=== PATIENT | female | born 1950 | race Caucasian/White ===

== ENCOUNTER 2018-02-21 08:47 | Inpatient (IN) | payer MEDICARE, OTHER ==
[~2018-02-21] VITALS: Ht 172.7 cm; Wt 109.4 kg
--- NOTE | ~2018-02-21 | S ---
[address] [address] SURGICAL PATH RPT PROCEDURE Name: VEE DIAZ Room: [address]#: [id number] Admission: 02/21/18 Date of : 54 Discharge: 02/22/18 Report #: [id number] Path Case #: [id number] PATHOLOGY REPORT DRAFT COLLECTION DATE: 02/22/2018 RECEIVED DATE: 02/22/2018 SPECIMEN(S) RECEIVED: Wanda biopsy
[2018-02-21 08:49] VITALS: BP 146/86
[2018-02-21] MEDS ORDERED: COZAAR 50 MG TA50 M2 PO ×2 (08:56→08:57)
[2018-02-21] MEDS ORDERED: SYNTHROID50 MCG PO (08:57)
[2018-02-21] MEDS ORDERED: TRAZODONE 150150 M1 PO ×2 (08:57→08:58)
[2018-02-21] MEDS ORDERED: OMEPRAZOLE40 MG PO (08:58)
[2018-02-21] MEDS ORDERED: XANAX 0.25 MG0.25 MG PO (08:58)
[2018-02-21] MEDS ORDERED: RANITIDINE HCL300 MG PO (08:58)
[2018-02-21 09:28] LABS: ABSOLUTE BASOPHILS 0.1 thou/uL (0.0-0.2); ABSOLUTE EOSINOPHILS 0.2 thou/uL (0.0-0.7); ABSOLUTE LYMPHOCYTES 1.7 thou/uL (0.8-5.3); ABSOLUTE MONOCYTES 0.4 thou/uL (0.0-1.2); ABSOLUTE NEUTROPHILS 3.7 thou/uL (1.6-8.1); BASOPHILS 0.9 %; EOSINOPHILS 2.6 %; HEMATOCRIT 39.8 % (37.0-47.0); HEMOGLOBIN 13.7 gm/dL (12.0-15.0); LYMPHOCYTES 28.1 %; MCH 29.1 pg (26.0-34.0); MCHC 34.4 g/dL (28.0-37.0); MCV 84.6 fL (80.0-100.0); MONOCYTES 7.4 %; MPV 8.7 fl. (7.2-11.1); NUCLEATED RBCS 0 /100WBC; PLATELET COUNT* 235 thou/uL (150-400); RBC 4.71 mil/uL (4.20-5.00); RDW-CV 14.3 % (10.5-14.5); WBC 6.1 thou/uL (4.0-11.0)
[2018-02-21 09:35] LABS: ANION GAP 8 mmol/L (7-16); BUN 21 mg/dL (7-18); CALCIUM 8.8 mg/dL (8.5-10.1); CHLORIDE 105 mmol/L (98-107); CO2 26 mmol/L (21-32); CREATININE 1.1 mg/dL (0.6-1.3); GLUCOSE 126 mg/dL (70-99); SODIUM 139 mmol/L (136-145)
[2018-02-21 09:49] LABS: ALBUMIN 3.4 g/dL (3.4-5.0); ALKALINE PHOSPHATASE 78 U/L (46-116); LIPASE 123 U/L (73-393); MAGNESIUM 1.8 mg/dL (1.8-2.4); SGOT 18 U/L (15-37); SGPT 28 U/L (30-65); TOTAL BILIRUBIN 0.3 mg/dL (<0.1-1.0); TOTAL PROTEIN 6.4 g/dL (6.4-8.2); TROPONIN-I LEVEL <0.06 ng/mL (<0.06)
[2018-02-21 11:10] VITALS: BP 108/68
[2018-02-21 11:20] VITALS: BP 110/70
[2018-02-21 16:13] VITALS: BP 103/66
--- NOTE | 2018-02-21 17:24 | 2DMMODE ---
[place] [address] 2 D/M-MODE ECHOCARDIOGRAM Name: VEE DIAZ Room: [address] IN [facility]#: [id number] Admission: 02/21/18 Attend Phys: Sebastian Dowd Discharge: Date of : 54 Date of Service: 02/21/18 1724 Report #: [id number] THIS REPORT FOR: //name// APPROVED REPORT Study performed: 02/21/2018 14:46:15 EXAM: Comprehensive 2D, Doppler, and color-flow Echocardiogram Patient Location: In-Patient Room #: 229 Status: routine BSA: 2.21 HR: 66 bpm BP: 110/70 mmHg Rhythm: NSR Other Information Study Quality: Good Indications Chest Pain 2D Dimensions LVEF(%): 70.26 (>50%) IVSd: 10.25 (7-11mm) LVOT Diam: 20.04 (18-24mm) LVDd: 45.31 mm PWd: 8.33 (7-11mm) Ascending Ao: 33.41 (22-36mm) LVDs: 27.37 (25-40mm) Aortic Root: 33.99 mm Centeno's LVEF: 70.26 % Volumes Left Atrial Volume (Systole) LA ESV Index: 16.10 mL/m2 Aortic Valve AoV Peak Arsh.: 1.20 m/s AO Peak Gr.: 5.80 mmHg LVOT Max P.61 mmHg AO Mean Gr.: 3.23 mmHg LVOT Mean P.83 mmHg LVOT Max V: 1.07 m/s AO V2 VTI: 25.18 cm LVOT Mean V: 0.60 m/s LETI (VTI): 2.66 cm2 LVOT V1 VTI: 21.26 cm Mitral Valve E/A Ratio: 1.01 [place] [address] 2 D/M-MODE ECHOCARDIOGRAM Name: VEE DIAZ Room: [address] IN .R.#: [id number] Admission: 02/21/18 Attend Phys: Sebastian Dowd Discharge: Date of : 54 Date of Service: 02/21/18 1724 Report #: [id number] MV Decel. Time: 217.55 ms MV E Max Arsh.: 0.85 m/s MV PHT: 63.09 ms MVA (PHT): 3.49 cm2 TDI E/Lateral E': 7.73 E/Medial E': 10.63 Medial E' Arsh.: 0.08 m/s Lateral E' Arsh.: 0.11 m/s Pulmonary Valve PV Peak Arsh.: 0.74 m/s PV Peak Gr.: 2.17 mmHg Tricuspid Valve TR Peak Gr.: 23.78 mmHg RVSP: 28.00 mmHg Left Ventricle The left ventricle is normal size. There is normal LV segmental wall motion. There is normal left ventricular wall thickness. Left ventricular systolic function is normal. LVEF is 60-65%. The left ventricular diastolic function is normal. Right Ventricle The right ventricle is normal size. The right ventricular systolic function is normal. Atria The left atrium size is normal. The right atrium size is normal. Aortic Valve The aortic valve is normal in structure. No aortic regurgitation is present. There is no aortic valvular stenosis. Mitral Valve The mitral valve is normal in structure. Trace mitral regurgitation. No evidence of mitral valve stenosis. Tricuspid Valve The tricuspid valve is normal in structure. Mild tricuspid regurgitation. The RVSP is ___28____ mmHg. Pulmonic Valve The pulmonary valve is normal in structure. Trace [place] [address] 2 D/M-MODE ECHOCARDIOGRAM Name: VEE DIAZ Room: [address] IN ..#: [id number] Admission: 02/21/18 Attend Phys: Sebastian Dowd Discharge: Date of : 54 Date of Service: 02/21/18 1724 Report #: [id number] Great Vessels The aortic root is normal in size. IVC is normal in size and collapses with >50% inspiration Pericardium There is no pericardial effusion. <Conclusion> The left ventricle is normal size. There is normal left ventricular wall thickness. Left ventricular systolic function is normal. LVEF is 60-65%. The left ventricular diastolic function is normal. Mild tricuspid regurgitation. The RVSP is ___28____ mmHg. IVC is normal in size and collapses with >50% inspiration <ELECTRONICALLY SIGNED> By: Quentin Nye MD, FACC 02/21/181723 23 23 Quentin Nye MD, FACC /INF
--- NOTE | 2018-02-21 17:49 | EKG ---
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
--- NOTE | 2018-02-21 18:43 | NUR ---
RECEIVED REPORT FROM TODD IN ER. PT TRANSFERED TO TELE FLOOR AROUND 1110. PT A&O X4. VSS. O2 SAT 97% ON 2L PER NC. TRAFFIC SUPERINTENDENT PLACED TRACING SR WITH NO CHANGES THIS SHIFT. PT ORIENTED TO ROOM, BED AND CALL LIGHT. ADMISSION ASSESSMENT, EDUCATION AND HISTORY COMPLETED CHARTED. PT ECHO COMPLETED. PT TO HAVE EDG TOMORROW MORNING. PT TO BE NPO AFTER MIDNIGHT. PT EATING AND DRINKING WITHOUT ISSUE. PT UP WITH STANDBY ASSIST TO THE BATHROOM, VOIDING WITHOUT ISSUE. FAMILY AT BEDSIDE THIS AFTERNOON. PT REPORTED CHEST HEAVINESS THAT WAS RELIEVED WITH 1 TAB NITRO. PT HAS HAD NO FURTHER EPISODES OF CHEST PAIN/HEAVINESS. PT INFORMED OF PLAN OF CARE, PT COMMUNICATES UNDERSTANDING. LOW FALL RISK PRECAUTIONS IN PLACE. CALL LIGHT IS WITHIN REACH, HOURLY ROUNDING PERFORMED. WCTM FOR DURATION OF SHIFT.
[2018-02-21 20:00] VITALS: BP 104/62; BP 124/70
[2018-02-22] VITALS (7 sets, daily range): BP systolic 96–158; BP diastolic 50–84
[2018-02-22 02:53] LABS: HEMATOCRIT 39.3 % (37.0-47.0); HEMOGLOBIN 13.5 gm/dL (12.0-15.0); MCH 29.3 pg (26.0-34.0); MCHC 34.3 g/dL (28.0-37.0); MCV 85.5 fL (80.0-100.0); MPV 8.8 fl. (7.2-11.1); RBC 4.6 mil/uL (4.20-5.00); RDW-CV 14.7 % (10.5-14.5); WBC 5.7 thou/uL (4.0-11.0)
--- NOTE | 2018-02-22 03:00 | NUR ---
PATIENT RESTED IN BED, PATIENT DID NOT SHOW SIGNS OF DISTRESS. NO ACUTE CHAGNES, PATIENT IS NPO. FALL PRECAUTIONS IN PLACE, BED ALARM ON, HOURLY ROUDING OBSERVED, CALL LIGHT WITHIN REACH.
[2018-02-22 03:21] LABS: ALBUMIN 3.2 g/dL (3.4-5.0); CALCIUM 8.2 mg/dL (8.5-10.1); CREATININE 1.2 mg/dL (0.6-1.3); MAGNESIUM 1.9 mg/dL (1.8-2.4); POTASSIUM 3.5 mmol/L (3.5-5.1); TOTAL BILIRUBIN 0.3 mg/dL (<0.1-1.0); TOTAL PROTEIN 5.9 g/dL (6.4-8.2)
--- NOTE | 2018-02-22 09:55 | CON ---
[address] [address] CONSULTATION Name: VEE DIAZ Room: [address] IN M.R.#: [id number] Admission: 02/21/18 Attend Phys: Olivia Mahmood Discharge: Date of : 54 Report #: [id number] THIS REPORT FOR: //name// CC: NAKUL Gautam at [facility] DATE OF SERVICE: 02/21/2018 INDICATION: Chest pressure. HISTORY OF PRESENT ILLNESS: The patient is a very pleasant 67-year-old white female with no history of coronary artery disease. In 2003, she was treated for cardiac arrhythmia with sotalol transiently. The cardiac medications were discontinued many years ago secondary to low blood pressure. She has not been on cardiac medications for the past several years. She has had no recurrence of her tachycardia. She states that she had an uncomfortable night, tossing and turning. This morning, she awoke and had chest pressure from at least 6:30 this morning persistently ongoing. She has had transient relief with nitroglycerin. At the time of my interview, she was still having some slight chest pressure, but was feeling otherwise okay. She is not having orthopnea. She does have dyspnea on exertion and rare palpitations. Her father of heart attack at 65. She has hypertension. She has no other significant cardiac risk factors. PAST MEDICAL HISTORY: 1. GERD. 2. Hypothyroidism. 3. Hiatal hernia. SOCIAL HISTORY: She does not smoke. She does not drink alcohol. FAMILY HISTORY: Father of heart attack at 65. ALLERGIES: None. CURRENT MEDICATIONS: Synthroid 150 mcg q.a.m., losartan/hydrochlorothiazide 100/25 mg q.a.m., ranitidine 300 mg p.o. q.a.m., trazodone 300 mg at bedtime, alprazolam 2 mg at bedtime, omeprazole 40 mg at bedtime. REVIEW OF SYSTEMS: On 14-point review of systems, she reports nonproductive cough, palpitations, chest pain, dyspnea, lower extremity swelling, hypothyroidism, blood in her stools, anemia long ago, seasonal allergies, anxiety, arthritis and glasses. Otherwise, 14-point review of [place] [address] CONSULTATION Name: VEE DIAZ Room: [address]#: [id number] Admission: 02/21/18 Attend Phys: Olivia Mahmood Discharge: Date of : 54 Report #: [id number] PHYSICAL EXAMINATION: VITAL SIGNS: Stable. Blood pressure 110/70, pulse is 70 and regular. GENERAL: This is a pleasant lady, in no distress. Mood and affect appropriate. HEENT: Extraocular muscles intact. Mucous membranes moist. NECK: Shows no jugular venous distention. There are no carotid bruits. CHEST: Reveals clear lung wills without wheezes, rales or rhonchi. CARDIOVASCULAR: Reveals regular rhythm, normal S1 and S2. I do not appreciate gallop or murmur. ABDOMEN: Reveals normal bowel sounds. The abdomen is soft and nontender. MUSCULOSKELETAL: No clubbing, cyanosis or edema. SKIN: Warm, dry. LABORATORY DATA: A 12-lead EKG shows sinus rhythm with delayed R-wave progression. I do not appreciate acute ST or T-wave abnormalities. Labs are reviewed. Troponins are unremarkable x 2 sets. IMPRESSION AND RECOMMENDATIONS: 1. Atypical chest pain. I suspect gastrointestinal in nature. We will rule out with serial troponins. We will obtain echocardiogram at this point in time. If her echo looks relatively unremarkable, I would proceed with EGD per Gastroenterology. 2. Esophagitis/gastroesophageal reflux disease. Protonix has been ordered here in the hospital. I will give the patient a GI cocktail at this point in time. 3. Hypertension. Continue losartan/hydrochlorothiazide at current dose. 4. Hypothyroidism. Continue replacement as outlined above. <ELECTRONICALLY SIGNED> By: Quentin Nye MD, FACC 02/22/18 0955 1346 2036Michaejolene Nye MD, FACC /nt
[2018-02-22] MEDS ORDERED: LIORESAL 10 MG10 MG PO (13:41)
[2018-02-22] MEDS ORDERED: WELLBUTRIN XL150 MG PO (13:41)
[2018-02-22] MEDS ORDERED: DULCOLAX5 MG PO (13:42)
--- NOTE | 2018-02-22 14:11 | NUR ---
RECEIVED REPORT. ASSUMED CARE OF PT AROUND 0730. PT A&O X4, VSS, O2 SAT 93% ON RA. RETIREMENT SALES CONSULTANT IN PLACE TRACING SR. AM ASSESSMENT AND VITALS COMPLETED CHARTED. PT DENIED PAIN OR DISCOMFORT THIS SHIFT. PT COMPLETED EGD THIS AM AND GI SIGNED OFF CASE. DISCHARGE ORDERS RECEIVED. DISCHARGE COMPLETED DOCUMENTED. DISCHARGE SUMMARY AND CARE NOTES GONE OVER WITH THE PT, PT COMMUNICATES UNDERSTANDING. SCRIPTS GIVEN FOR WELLBUTRIN AND BACLOFEN. PT INSTRUCTED TO START TAKNIG OTC DULCOLAX WELL. PT ATE LUNCH WITHOUT ISSUE PRIOR TO DC. UP TO BATHROOM AD MUNDO, VOIDING WITHOUT ISSUE. PT LEFT UNIT WITH NURSING STAFF. PT LEFT FACILITY IN CAR WITH .
--- NOTE | 2018-02-24 22:52 | CON ---
[address] [address] CONSULTATION Name: VEE DIAZ Room: [address] IN M.R.#: [id number] Admission: 02/21/18 Attend Phys: Olivia Mahmood Discharge: 02/22/18 Date of : 54 Report #: [id number] THIS REPORT FOR: //name// CC: NAKUL Dowd DICTATED BY: Jazmín Alcantara [facility] DATE OF SERVICE: 02/21/2018 The patient currently does not have a primary care physician. Please note at the time of this dictation, the patient was seen and physically examined by myself. REASON FOR CONSULTATION: Chest pain. HISTORY OF PRESENT ILLNESS: This 67-year-old female presented to the Emergency Room was having intermittent chest pain. She rated it 8/10 that was all night, prompting her to come in. She has been having some nausea associated with it and some shortness of breath. She states she experiences the pain as a pressure in the middle of her chest that does not radiate. She states she has had episodes of tachycardia in the past and have been hospitalized. She also reports that she has had a history of an VA and a DVT as well. She did have an EGD and colonoscopy, she thinks probably around 5 years ago with finding of her GERD. The patient states that she would have coughing at night. She would wake up the next morning and her voice would be very hoarse and she would have kind of a raspy voice and sore throat. She states this continues despite that she takes omeprazole 40 mg in the morning and 40 at night along with 300 of ranitidine in the morning. She states it does not matter rhyme nor reasons. She can eat bananas and cause acid reflux and then another time eat [place]ian food and has no problems. Her last EGD like mentioned earlier was about 5 years ago that said that she had reflux and a hiatal hernia and she also had a colonoscopy done around that same time that said everything was okay that she had some benign polyps. She has not had anything further and it was done over at [facility] and she believes it was with Dr. Quentin Lujan. The patient is not complaining of any nausea or vomiting and has not experienced any of that not having any epigastric pain to mainly has substernal chest discomfort. She does have some generalized abdominal discomfort, lower particularly in which she has bouts of constipation up to a week and then will have diarrhea. She has no known regular bowel regimen at this time and it has been several days since she has had a bowel movement as well. ALLERGIES: No known drug allergies. MEDICATIONS: From home include omeprazole, ranitidine, alprazolam, trazodone, [place] [address] CONSULTATION Name: VEE DIAZ Room: [address] IN .R.#: [id number] Admission: 02/21/18 Attend Phys: Olivia Mahmood Discharge: 02/22/18 Date of : 54 Report #: [id number] Synthroid and losartan. PAST MEDICAL HISTORY: Hypothyroidism, hypertension, history of tachycardia and reflux. PAST SURGICAL HISTORY: Negative. FAMILY HISTORY: Negative for any GI or female cancers. SOCIAL HISTORY: Denies any alcohol, tobacco or illegal drug use. REVIEW OF SYSTEMS: Twelve-point review of systems essentially negative except what is mentioned in the HPI. PHYSICAL EXAMINATION: VITAL SIGNS: Temperature 36.6, pulse 69, respirations 18, blood pressure 110/70. HEART: Regular rate and rhythm. LUNGS: Clear. ABDOMEN: Soft, positive bowel sounds in all 4 quadrants with tenderness noted in the lower quadrants bilaterally. EKG shows an old inferior infarct, questionable anterior. Labs at the present time, troponins have all been negative. LABORATORY DATA: Hemoglobin 13.7, hematocrit 39.8, white count is 6.1 and platelets 235. Sodium 139, potassium 4, chloride 105, CO2 26, BUN is 21, creatinine 1.1, GFR is 50 and glucose is 126. Chest x-ray is completely normal and Cardiology consult is still pending. LFTs are completely normal as well as lipase. IMPRESSION: 1. Chest pain. 2. History of severe gastroesophageal reflux disease. 3. Constipation, diarrhea. 4. History of colon polyps. PLAN: 1. We will obtain medical records from [facility] and Dr. Quentin Lujan regarding her EGD colon and pathology. 2. The patient will need a regular bowel regimen upon discharge. 3. The patient will need an EGD once cleared from Cardiology. Thank you for allowing us to participate in this patient's care. Please do not hesitate to call with any questions. [address] [address] CONSULTATION Name: VEE DIAZ Room: [address] IN [facility]#: [id number] Admission: 02/21/18 Attend Phys: Olivia Mahmood Discharge: 02/22/18 Date of : 54 Report #: [id number] ADDENDUM REFERRING PHYSICIAN: Sebastian Dowd, DO The patient has no primary care provider. I have seen and examined the patient and agree with plan that has been outlined by our nurse practitioner, Jazmín Alcantara. The patient is currently in the process of being evaluated by Cardiology to evaluate her candidacy for upper endoscopy, but likely her echocardiogram will be okay. If so, we will proceed with upper endoscopy tomorrow and make further recommendations thereafter. In talking with the patient, she has had problem with severe acid reflux, which has been refractory taking Zantac in the morning and omeprazole 40 mg at bedtime. She has problems normally with acid reflux, but also regurgitation, chronic hoarseness, cough and the like. She also sleeps in a recliner or with pillows behind her and still has problems. She has had some problem with dry foods, mostly breads and the like with dysphagia, but no liquid issues. She has undergone endoscopic studies of her upper GI tract in the past, but cannot recall the results of the same. She also has some underlying irritable bowel type issues as well, which can contribute to some of her issues with her upper gastrointestinal tract. Fortunately, she does not smoke any tobacco or drinking alcohol and she typically eats at a decent time between 5 and 7 before retiring to bed later in the evening. She did not have any bad habits. She is really relatively miserable at her reflux type symptoms at this point in time and the like. I will recommend she proceed with upper endoscopy tomorrow to evaluate for whether or not she has any precancer changes of Arzola's noted within the esophagus and also to assess whether or not she has much of a hiatal hernia. Depending on the same, she will likely need to be on at least of trial of b.i.d. therapy with a proton pump inhibitor such as omeprazole 40 mg twice daily before breakfast and before dinner and ranitidine at bedtime. This may help with her reflux type issues, but may not help with her regurgitation or chronic hoarseness. I would like to have her eventually come back to see me in the office going in several weeks when she is out of the hospital and we can discuss with her alternatives such as surgery. This will include depending on what is found tomorrow, a hiatal hernia repair with fundoplication or even a possible LINX procedure. The patient is aware of the problems with long-term proton pump inhibitor therapy with regards to her kidney issues and osteoporosis and is not excited about being on more than once daily dosing of her PPI. In any event, we can give a trial to see if this will [place] [address] CONSULTATION Name: VEE DIAZ Room: [address]#: [id number] Admission: 02/21/18 Attend Phys: Olivia Mahmood Discharge: 02/22/18 Date of : 54 Report #: [id number] recommendations thereafter. I have discussed the plans with the patient as well as her daughter at the bedside and they are agreeable to the same. <ELECTRONICALLY SIGNED> By: Brijesh Jimenez DO 02/24/18 2252 1328 2040Brijesh Jimenez DO /nt
--- NOTE | 2018-02-24 22:52 | CON ---
[address] [address] CONSULTATION Name: BRADFORDEDWARDVEE Room: [address] IN M.R.#: [id number] Admission: 02/21/18 Attend Phys: Olivia Mahmood Discharge: 02/22/18 Date of : 54 Report #: [id number] THIS REPORT FOR: //name// CC: NAKUL Dowd DO DATE OF SERVICE: 02/21/2018 ADDENDUM REFERRING PHYSICIAN: Sebastian Dowd DO The patient has no primary care provider. I have seen and examined the patient and agree with plan that has been outlined by our nurse practitioner, Jazmín Alcantara. The patient is currently in the process of being evaluated by Cardiology to evaluate her candidacy for upper endoscopy, but likely her echocardiogram will be okay. If so, we will proceed with upper endoscopy tomorrow and make further recommendations thereafter. In talking with the patient, she has had problem with severe acid reflux, which has been refractory taking Zantac in the morning and omeprazole 40 mg at bedtime. She has problems normally with acid reflux, but also regurgitation, chronic hoarseness, cough and the like. She also sleeps in a recliner or with pillows behind her and still has problems. She has had some problem with dry foods, mostly breads and the like with dysphagia, but no liquid issues. She has undergone endoscopic studies of her upper GI tract in the past, but cannot recall the results of the same. She also has some underlying irritable bowel type issues as well, which can contribute to some of her issues with her upper gastrointestinal tract. Fortunately, she does not smoke any tobacco or drinking alcohol and she typically eats at a decent time between 5 and 7 before retiring to bed later in the evening. She did not have any bad habits. She is really relatively miserable at her reflux type symptoms at this point in time and the like. I will recommend she proceed with upper endoscopy tomorrow to evaluate for whether or not she has any precancer changes of Arzola's noted within the esophagus and also to assess whether or not she has much of a hiatal hernia. Depending on the same, she will likely need to be on at least of trial of b.i.d. therapy with a proton pump inhibitor such as omeprazole 40 mg twice daily before breakfast and before dinner and ranitidine at bedtime. This may help with her reflux type issues, but may not help with her regurgitation or chronic hoarseness. I would like to have her eventually come back to see me in the office going in several weeks when she is out of the hospital [place] [address] CONSULTATION Name: VEE DIAZ Room: [address] IN M.R.#: [id number] Admission: 02/21/18 Attend Phys: Olivia Mahmood Discharge: 02/22/18 Date of : 54 Report #: [id number] discuss with her alternatives such as surgery. This will include depending on what is found tomorrow, a hiatal hernia repair with fundoplication or even a possible LINX procedure. The patient is aware of the problems with long-term proton pump inhibitor therapy with regards to her kidney issues and osteoporosis and is not excited about being on more than once daily dosing of her PPI. In any event, we can give a trial to see if this will help and make further recommendations thereafter. I have discussed the plans with the patient as well as her daughter at the bedside and they are agreeable to the same. <ELECTRONICALLY SIGNED> By: Brijesh Jimenez DO 02/24/18 2252 1642 0003Brijesh Jimenez DO /nt
--- NOTE | 2018-04-10 09:06 | PATH ---
[address] [address] PATHOLOGY RPT PROCEDURE Name: ANIA DIAZ Room: [address] IN M.R.#: [id number] Admission: 02/21/18 Date of : 54 Discharge: 02/22/18 Report #: [id number] Path Case #: [id number] [facility] Accession Number: [id number] . 01 Material submitted: . ANTRUM BIOPSY, RULE OUT H PYLORI . 01 Clinical history: . None provided . 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 (JESUS:mgr; 03/01/18) . Special Stain: H. pylori immuno . This case was prepared and proofread by Dr. Terry Akbar and electronically release by Dr. Shay Llanos. QRQ/03/01/2018 . 02 Electronically signed: . Shay Llanos MD, Pathologist NPI- [id number] . 02 Gross description: . The specimen is received in formalin, labeled " Zeysing,Ania and antrum biopsy, rule out H. pylori", are several bernstein soft tissue fragments ranging from 0.1 up to 0.2 cm in greatest dimension and measuring 0.4 x 0.2 x 0.2 cm in aggregate, entirely submitted in A1. (SWS; 02/27/2018) /QRQ . 02 Pathologist provided ICD-10: K29.50 . 02 CPT . 287406, [id number] [facility]: [facility] [address] [id number] MD Masood Arnold MD Phone: [phone] Performed at: 02 [facility] [address] [id number] MD Shay Llanos MD Phone: [phone]
== END 2018-02-22 14:01 | disposition home or self-care (01) | DRG 392 ==
LOC: M.ERS 08:47 → M.TBA-ER 10:02 → M.2W 10:02
PROVIDERS: Emergency Medicine Emergency Medical Services; ADMIT Internal Medicine
PROC: B24BZZ4 Ultrasonography of Heart with Aorta, Transesophageal (ICD-10-PCS; principal; 2018-02-21)
PROC: 0DB78ZX Excision of Stomach, Pylorus, Via Natural or Artificial Opening Endoscopic, Diagnostic (ICD-10-PCS; 2018-02-22)
DX: K21.0 Gastro-esophageal reflux disease with esophagitis (principal); I10 Essential (primary) hypertension; E03.9 Hypothyroidism, unspecified; K59.00 Constipation, unspecified; F41.9 Anxiety disorder, unspecified; K44.9 Diaphragmatic hernia without obstruction or gangrene; I25.2 Old myocardial infarction; Z79.899 Other long term (current) drug therapy; Z86.010 Personal history of colon polyps; Z86.718 Personal history of other venous thrombosis and embolism; Z82.49 Family history of ischemic heart disease and other diseases of the circulatory system

== ENCOUNTER 2018-10-26 10:11 | Inpatient (IN) | payer MEDICARE, OTHER ==
[~2018-10-26] VITALS: Ht 172.7 cm; Wt 99.8 kg
[2018-10-26] VITALS (15 sets, daily range): BP systolic 126–142; BP diastolic 71–88
[~2018-10-26 10:11] MED LIST: COZAAR 50 MG TA50 M2 PO; DULCOLAX5 MG PO; LIORESAL 10 MG10 MG PO; OMEPRAZOLE40 MG PO; RANITIDINE HCL300 MG PO; SYNTHROID50 MCG PO; TRAZODONE 150150 M1 PO; WELLBUTRIN XL150 MG PO; XANAX 0.25 MG0.25 MG PO
--- NOTE | 2018-10-26 10:18 | NUR ---
PT HAVING INCREASED CHEST PAIN WITH NOTED TELE CHANGES, NOTIFIED AND EKG OBTAINED
[2018-10-26] MEDS ORDERED: XANAX1 MG PO (10:20)
[2018-10-26] MEDS ORDERED: SYNTHROID150 MCG PO (10:21)
[2018-10-26] MEDS ORDERED: LOSARTAN-HCTZ1 EAC1 PO (10:21)
[2018-10-26 10:43] LABS: ABSOLUTE BASOPHILS 0.1 thou/uL (0.0-0.2); ABSOLUTE EOSINOPHILS 0.1 thou/uL (0.0-0.7); ABSOLUTE LYMPHOCYTES 1.8 thou/uL (0.8-5.3); ABSOLUTE MONOCYTES 0.3 thou/uL (0.0-1.2); ABSOLUTE NEUTROPHILS 2.9 thou/uL (1.6-8.1); BASOPHILS 1.2 %; EOSINOPHILS 1.9 %; HEMATOCRIT 42.1 % (37.0-47.0); HEMOGLOBIN 14.4 gm/dL (12.0-15.0); LYMPHOCYTES 35.3 %; MCH 29.7 pg (26.0-34.0); MCHC 34.3 g/dL (28.0-37.0); MCV 86.4 fL (80.0-100.0); MONOCYTES 6.2 %; MPV 8.6 fl. (7.2-11.1); NUCLEATED RBCS 0 /100WBC; PLATELET COUNT* 235 thou/uL (150-400); POLYS 55.4 %; RBC 4.87 mil/uL (4.20-5.00); RDW-CV 13.1 % (10.5-14.5); WBC 5.2 thou/uL (4.0-11.0)
[2018-10-26 11:04] LABS: APTT 27.3 Seconds (25.0-31.3); PROTIME 10.3 Seconds (9.20-11.50)
[2018-10-26 11:19] LABS: CALCIUM 8.6 mg/dL (8.5-10.1); CREATININE 1.2 mg/dL (0.6-1.3)
[2018-10-26 11:38] LABS: ALBUMIN 3.4 g/dL (3.4-5.0); CK-MB MASS 1.5 ng/mL (<0.5-3.6); MAGNESIUM 1.7 mg/dL (1.8-2.4); TOTAL BILIRUBIN 0.3 mg/dL (<0.1-1.0); TOTAL PROTEIN 6.6 g/dL (6.4-8.2); TROPONIN-I LEVEL 0.12 ng/mL (<0.06)
--- NOTE | 2018-10-26 16:30 | NUR ---
REC'D BEDSIDE REPORT FROM EXPRESS MANAGER RADIOLOGICAL DEFENSE OFFICER. PT ARRIVED TO UNIT APPROX 1310 VIA BED AND EXPRESS MANAGER RADIOLOGICAL DEFENSE OFFICER. A&O X4, ABLE TO COMMUNICATE NEEDS TO STAFF. TRUCK BENCH MECHANIC IN PLACE, SR. O2 SAT 96% ON RA. ASSESSMENT COMPLETE. R GROIN SITE DRSG BECAME SATURATED WITH BLOOD. CALLED EXPRESS MANAGER RADIOLOGICAL DEFENSE OFFICER, CAME TO BS FOR ASSESSMENT, REDRESSED R GROIN SITE. BLEEDING WAS SUPERFICIAL. NEW GAUZE DRSG TO SITE CONTINUES TO BE C/D/I. PT C/O PAIN/SORENESS. PRN PAIN MED GIVEN PER JAN. FAMILY VISITING IN ROOM. CALL LIGHT IN REACH. HOURLY ROUNDING FOR SAFETY AND PT NEEDS.
[2018-10-26] MEDS ORDERED: PROTONIX40 M1 PO (18:47)
[2018-10-26] MEDS ORDERED: TRAZODONE 150150 M1 PO (18:48)
[2018-10-26 20:57] LABS: CK-MB MASS 1.5 ng/mL (<0.5-3.6)
[2018-10-26 21:12] LABS: TROPONIN-I LEVEL 0.31 ng/mL (<0.06)
[2018-10-27] VITALS: BP 106/59
[2018-10-27 04:00] VITALS: BP 104/59
[2018-10-27 05:02] LABS: HEMATOCRIT 41.4 % (37.0-47.0); MCH 29.7 pg (26.0-34.0); MCHC 33.8 g/dL (28.0-37.0); MCV 87.9 fL (80.0-100.0); MPV 8.8 fl. (7.2-11.1); RBC 4.7 mil/uL (4.20-5.00); RDW-CV 13.5 % (10.5-14.5); WBC 6.3 thou/uL (4.0-11.0)
[2018-10-27 05:43] LABS: CHOLESTEROL 199 mg/dL (<200); HDL CHOLESTEROL 24 mg/dL (>40); TC:HDL 8.3 Ratio (Not establshd); TRIGLYCERIDE 583 mg/dL (<150); VLDL 117 mg/dL (<40)
[2018-10-27 06:01] LABS: LDL CHOLESTEROL ND mg/dL (<100); SERUM ASSESSMENT Moderate Lipemia
[2018-10-27 06:02] LABS: ALBUMIN 3.2 g/dL (3.4-5.0); CALCIUM 8.3 mg/dL (8.5-10.1); CREATININE 1.3 mg/dL (0.6-1.3); POTASSIUM 4.7 mmol/L (3.5-5.1); TOTAL BILIRUBIN 0.3 mg/dL (<0.1-1.0); TOTAL PROTEIN 5.7 g/dL (6.4-8.2); TROPONIN-I LEVEL 0.25 ng/mL (<0.06)
--- NOTE | 2018-10-27 07:07 | NUR ---
PT AAOX4, PT VOICED ABLE TO VOID TOWARDS START OF SHIFT. SOFTWARE BUSINESS ANALYST IN PLACE, TRACING SINUS RHYTHM. DENIES CHEST PAIN THIS SHIFT. RIGHT GROIN CATH SITE CLEAN DRY AND INTACT. C/O HEADACHE AT START OF SHIFT, PRN PAIN MEDICATION ADMINISTERED, PT VOICED DECREASE IN PAIN. HOURLY ROUNDING COMPLETED. CALL LIGHT WITHIN REACH. PT PROGRESSING TOWARDS GOALS.
[2018-10-27 07:55] VITALS: BP 116/61
[2018-10-27 12:06] VITALS: BP 114/47
--- NOTE | 2018-10-27 13:00 | NUR ---
REC'D REPORT FROM NOC RN, ASSUMED CARE OF PT APPROX 0730. A&O X4, ABLE TO COMMUNICATE NEEDS TO STAFF. LINEN ROOM WORKER IN PLACE, SR. O2 SATS >92% ON RA. ASSESSMENT COMPLETE. MEDS PER JAN. PT PLANS TO REST THIS AFTERNOON. CALL LIGHT IN REACH. HOURLY ROUNDING FOR SAFETY AND PT NEEDS.
--- NOTE | 2018-10-27 13:36 | EKG ---
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: Hilaria CERNA : 1950 Requested By: Forest Gautam Order Number: [id number] MD: Dilshad Ashley Measurements Intervals [place] Rate: 73 P: 25 WA: 156 QRS: -50 QRSD: 87 T: 55 QT: 361 QTc: 398 Interpretive Statements Sinus rhythm Left ventricular hypertrophy Inferior infarct, old Anterior infarct, old Compared to ECG 02/21/2018 08:53:13 Left ventricular hypertrophy now present Myocardial infarct finding still present Electronically Signed On 10-27-2018 13:36:37 RACK CLEANER by Dilshad Ashley [email or web address] <ELECTRONICALLY SIGNED> By: Dilshad Ashley MD, FACC 10/27/18 1336 1016 1016 Dilshad Ashley MD, [facility] /EPI
--- NOTE | 2018-10-27 13:40 | EKG ---
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: Hilaria CERNA : 1950 Requested By: Forest Gautam Order Number: [id number] MD: Dilshad Ashley Measurements Intervals [place] Rate: 84 P: 38 SD: 152 QRS: -49 QRSD: 94 T: 61 QT: 391 QTc: 463 Interpretive Statements Sinus arrhythmia Ventricular premature complex Inferior infarct, old Anterior infarct, acute (LAD) Electronically Signed On 10-27-2018 13:39:58 TRUSS DRIVER HELPER by Dilshad Ashley [email or web address] <ELECTRONICALLY SIGNED> By: Dilshad Ashley MD, [facility] 10/27/18 1339 1103 1103 Dilshad Ashley MD, [facility] /EPI
--- NOTE | 2018-10-27 13:53 | EKG ---
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 Trimmer: [facility] : 1950 Requested By: Dilshad Ashley Order Number: [id number] Clifton MD: Dilshad Ashley Measurements Intervals [place] Rate: 70 P: 39 [place]: 151 QRS: -44 QRSD: 91 T: 80 QT: 483 QTc: 522 Interpretive Statements Sinus rhythm Inferior infarct, old Probable anterior infarct, age indeterminate Prolonged QT interval Electronically Signed On 10-27-2018 13:53:24 HORIZONTAL BORING MILL SET UP OPERATOR by Dilshad Ashley [email or web address] <ELECTRONICALLY SIGNED> By: Dilshad Ashley MD, [facility] 10/27/18 1353 6 6 Dilshad Ashley MD, FACC /EPI
--- NOTE | 2018-10-27 14:42 | CARD ---
[address] [address] CARDIAC CATH REPORT Name: VEE DIAZ Room: [address] IN ..#: [id number] Admission: 10/26/18 Attend Phys: Dilshad Ashley MD, F Discharge: Date of : 54 Report #: [id number] THIS REPORT FOR: //name// APPROVED REPORT Study performed: 10/26/2018 11:30:02 Patient Details Patient Status: ED Room #: The patient is a 68 year-old female Event Personnel Dilshad Ashley Radial Drill Press Set Up Operator, Silvana Neil RN Farm Advisor, Danni Díaz RN Farm Advisor, Katelynn Colon RTR Monitor, Ellis Crenshaw (R) Scrub Procedures Performed Art Access - R femoral artery* Left Heart Cath w/or w/o Coronaries C BRITTANY Place w/wo Plasty Single LAD Hemostasis w/ Angioseal Indication STEMI , Chest pain Risk Factors Arterial Hypertension Admission/Lab Medications/Medications given during procedure Glycoprotein IllbIlla Inhibitors, Heparin Unfract. Procedure Narrative The patient was brought emergently to the Cardiac Catheterization Laboratory and was prepped and draped in a sterile manner. The right femoral was infiltrated with 2% Lidocaine subcutaneous anesthesia. A 6Fr Ultimum sheath was inserted into the right femoral artery. Coronary angiography was performed using coronary diagnostic catheters. The right coronary system was accessed and visualized with a Diagnostic 6Fr JR4 catheter. The left coronary system was accessed and visualized with a Diagnostic 6Fr JL4 catheter. The left ventricle was accessed and visualized with a Diagnostic 6Fr angled pigtail catheter. Left ventricular/Aortic Valve gradient assessed via catheter pullback. Left ventriculogram was performed in EDMONDS projection. Closure device was deployed with a 6 Fr Angioseal STS 6Fr. The patient tolerated the procedure well [place] [address] CARDIAC CATH REPORT Name: VEE DIAZ Room: [address] IN [facility]#: [id number] Admission: 10/26/18 Attend Phys: Dilshad Ashley MD, F Discharge: Date of : 54 Report #: [id number] complications associated with the procedure. There was no hematoma. Intraoperative Conscious Sedation Sedation start time: 1201 Case end Time: 1229 Fentanyl 25 mcg Versed 2 mg Fluoro Time: 3.5 minutes Dose: DAP 65346 cGycm2 94.8 mGy Contrast Type and Amount: Visipaque 230 ml Coronary Angiography The patient's coronary anatomy is left dominant. Diagnostic Cath Left Main 0% stenosis LAD 90% proximal stenosis with thrombus Diagonal 2 60% proximal stenosis OM3 60% ostial stenosis Right Coronary 0% stenosis Ramus 50% proximal stenosis Left Ventriculography The left ventricular ejection fraction is estimated to be 30-35%. Left ventricular wall motion abnormalities are present. There is 1+ mitral insufficiency. akinesis noted of the distal anteroapical wall Hemodynamics The aortic pressure is 164/92 mmHg with a mean of 127 mmHg. The left ventricular pressure is 140/12 mmHg with a mean of mmHg. The left ventricular end diastolic pressure is 17 mmHg. There was no gradient across the aortic valve upon pullback. Pullback from the left ventricle to the aorta revealed no gradient across the aortic valve. PCI Technique Lesion Anticoagulation was achieved with Heparin. bolus of iv aggrastat given Percutaneous coronary intervention was performed on the proximal left anterior descending artery segment. The lesion stenosis prior to intervention was 90% with DOTTY 3 flow. A 6F XB LAD 3.5 Guide Catheter was used to engage the lm ostium. A BMW 190cm Interventional Guidewire was used to cross the lesion[place] [address] CARDIAC CATH REPORT Name: VEE DIAZ Room: [address] IN [facility]#: [id number] Admission: 10/26/18 Attend Phys: Dilshad Ashley MD, F Discharge: Date of : 54 Report #: [id number] A Balloon catheter Mini Trek RX 2.0 X 8 was inserted and inflated up to 8.00atm for 11seconds. Repeat angiography revealed the following post-dilatation results: 50% stenosis. Additional Inflation: 12.00atm for 12seconds. STENT DEPLOYMENT A drug-eluting stent Xience Nataliya [id number] was inserted and inflated up to 8.00atm for 10seconds. Repeat angiography revealed the following post-stent deployment results: 0% stenosis. Final angiography reveals 0 % stenosis with DOTTY 3 flow. Conclusion 1. LV EF 30-35% stenosis 2. 90% proximal stenosis of the lad with thrombus 3. 60% stenosis of the second diagonal branch and 3rd marginal branch 4. successful placement of a drug eluting stent in the proximal lad Recommendations Cardiac Rehabilitation Referral Aggressive Medical Therapy Medications Administered Clopidogrel <ELECTRONICALLY SIGNED> By: Dilshad Ashley MD, FACC 10/27/18 1442 1442 1442Davijassi Ashley MD, FACC /INF
[2018-10-27 17:05] VITALS: BP 108/70
[2018-10-27 19:15] LABS: CK-MB MASS 0.8 ng/mL (<0.5-3.6); TROPONIN-I LEVEL 0.16 ng/mL (<0.06)
[2018-10-27 20:00] VITALS: BP 116/57
[2018-10-28] VITALS: BP 110/61
[2018-10-28 04:00] VITALS: BP 104/59
[2018-10-28 05:25] LABS: HEMATOCRIT 39.2 % (37.0-47.0); HEMOGLOBIN 13.4 gm/dL (12.0-15.0); MCH 29.9 pg (26.0-34.0); MCHC 34.3 g/dL (28.0-37.0); MCV 86.9 fL (80.0-100.0); MPV 9.1 fl. (7.2-11.1); RBC 4.5 mil/uL (4.20-5.00); RDW-CV 13.3 % (10.5-14.5); WBC 5.7 thou/uL (4.0-11.0)
[2018-10-28 05:46] LABS: CK-MB MASS 0.6 ng/mL (<0.5-3.6); TROPONIN-I LEVEL 0.15 ng/mL (<0.06)
--- NOTE | 2018-10-28 07:08 | NUR ---
ASSUMED PT CARE AT 1930. NURSING ASSESSMENT COMPLETED AT START OF SHIFT. PT VOICED NO CONCERNS. BSW IN PLACE, TRACING SINUS RHYTHM THIS SHIFT. PT DENIES ANY PAIN THIS SHIFT. HOURLY ROUNDING COMPLETED. CALL LIGHT WITHIN REACH. PT STATES READINESS TO DISCHARGE HOME TODAY.
[2018-10-28 08:00] VITALS: BP 116/89
[2018-10-28] MEDS ORDERED: COREG3.125 MG PO (11:35)
[2018-10-28] MEDS ORDERED: LIPITOR40 MG PO (11:36)
[2018-10-28] MEDS ORDERED: PLAVIX 75 MG TA75 M1 PO (11:37)
[2018-10-28 11:46] VITALS: BP 116/89
--- NOTE | 2018-10-28 13:00 | NUR ---
vss, ASSUMED CARE THIS AM, ASSESSMENT PERFORMED AND CHARTED, FALL PRECAUTIONS IN PLACE AND CALL LIGHT IN REACH. PT IS A&O4, ON RA, UP AD MUNDO, TRACING SR ON THE MONITOR, DENIES ANY PAIN, PT GOAL IS TO D/C TO HOME. I HAVE RECIEVED D/C ORDERS, FILLED OUT D/C PAPERS, FILLED OUT MED/S CALLED CARIOLOGY OFFICE TO SET UP FOLLOW UP MEETING, PROVITED D/C POST CATH EDU AND CARE FOR SITE, RIGHT GRION SITE IS C/D/I, IV ANFD TELE MONITOR TAKEN OFF, PT DENIES ANY QUESTIONS OR CONCERNS AT TIME OF D/C SHE LEFT WITH SPOUCE IN CAR. ALL BELONGING Gathered and place with pt.
--- NOTE | 2018-10-28 13:46 | EKG ---
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: : 1950 Requested By: Dilshad Ashley Order Number: [id number] Clifton MD: Dilshad Ashley Measurements Intervals [place] Rate: 70 P: 31 PA: 165 QRS: -49 QRSD: 94 T: 113 QT: 494 QTc: 534 Interpretive Statements Sinus rhythm Inferior infarct, old Anterior infarct, age indeterminate Prolonged QT interval Compared to ECG 10/27/2018 03:07:41 No significant changes Electronically Signed On 10-28-2018 13:46:08 CLINICAL SUPPORT ASSOCIATE by Dilshad Ashley [email or web address] <ELECTRONICALLY SIGNED> By: Dilshad Ashley MD, FACC 10/28/18 1346 5 5 Dilshad Ashley MD, [facility] /EPI
--- NOTE | 2018-10-28 13:54 | H ---
[place] [address] HISTORY AND PHYSICAL Name: VEE DIAZ Room: [address] IN .R.#: [id number] Admission: 10/26/18 Attend Phys: Dilshad Ashley MD, F Discharge: 10/28/18 Date of : 54 Report #: [id number] THIS REPORT FOR: //name// CC: NAKUL Gautam [facility] physician/PCP DATE OF SERVICE: 10/26/2018 HISTORY OF PRESENT ILLNESS: The patient is a 68-year-old white female who I was asked to see in the Emergency Room today after she complained of chest pain. The patient has no previous history of heart disease. She does not exercise on a regular basis. For the past couple of weeks, she has been having intermittent chest pain. It is not necessarily related to exertion or meals. It goes up into her throat. There was no associated diaphoresis, shortness of breath or nausea. Today, she woke up at 8:00 and felt the chest tightness. Her brought her to the Emergency Room. In the Emergency Room, the pain would tend to come and go. During an episode, she had an ECG that showed ST-segment elevation. A code STEMI was activated. At the current time, the pain is resolved. She denies any exertional dyspnea, palpitations or syncope. She denied the pain being related to food. She has had no fever or cough. She denied any bleeding. She has had no trauma to her chest. PAST MEDICAL HISTORY: She has had a previous left knee surgery. She has had thyroid surgery. She apparently had an episode of tachycardia years ago and was placed on Xanax. She has a history of hypertension and hyperlipidemia. MEDICATIONS: Include Losartan HCTZ, Synthroid, Prilosec, ranitidine and Xanax. ALLERGIES: She has no known drug allergies. FAMILY HISTORY: Father of a heart attack. SOCIAL HISTORY: She is . She and her live in [place]. 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 No smoking or alcohol abuse. REVIEW OF SYSTEMS: She has had no history of stroke or asthma. She has had a hiatal hernia. No liver disease, no kidney disease, no cancer. She wears glasses. She saw a psychiatrist in the past. She has a history of anxiety. PHYSICAL EXAMINATION: GENERAL: Revealed a middle-aged female lying in a stretcher. She appeared in mild distress. VITAL SIGNS: She has a blood pressure of 140/80 and pulse 70. She is afebrile. HEENT: She is anicteric, conjunctiva pink. Mucous membranes are moist. NECK: Neck veins are nondistended. No carotid bruits[place] [address] HISTORY AND PHYSICAL Name: PRISCILA DIAZONNMegan Miller Room: [address]#: [id number] Admission: 10/26/18 Attend Phys: Dilshad Ashley MD, F Discharge: 10/28/18 Date of : 54 Report #: [id number] CHEST: Clear to auscultation. CARDIOVASCULAR: Regular rate and rhythm, no murmur. ABDOMEN: Soft and nontender. EXTREMITIES: Had no edema. Dorsalis pedis pulse cannot be palpated. SKIN: Cool and dry. NEUROLOGIC: Nonfocal. LABORATORY DATA: ECG shows a sinus rhythm, PVC, left axis, evidence of previous anterior infarction with ST segment elevation V1, V2, V3 and V4. Her workup in the Emergency Room, she had a chest x-ray in February when she came to the Emergency Room showed normal heart size and clear lung wills. Her lab work, sodium 139, BUN 23, creatinine 1.2 and albumin 3.2 in February. Her white blood cell count 5.2 and hemoglobin 14.4. IMPRESSION AND RECOMMENDATIONS: 1. Anterior ST-segment myocardial infarction. Recommend urgent cardiac catheterization. 2. History of hypertension. The patient is on an ARB and diuretic. 3. Previous thyroid surgery. The patient is on thyroid replacement. 4. History of hyperlipidemia. The patient is not on any medications. 5. History of hiatal hernia. 6. History of anxiety. The patient is on Xanax. Note that the time spent with the patient was from 11 a.m. to 12 noon. <ELECTRONICALLY SIGNED> By: Dilshad Ashley MD, FACC 10/28/18 1354 1128 1155Davijassi Ashley MD, FACC /nt
--- NOTE | 2018-10-28 13:54 | D ---
[address] [address] DISCHARGE SUMMARY Name: EMILYVEE G Room: [address] IN .R.#: [id number] Admission: 10/26/18 Attend Phys: Dilshad Ashley MD, F Discharge: 10/28/18 Date of : 54 Report #: [id number] THIS REPORT FOR: //name// CC: Dilshad Ashley [facility] physician/PCP Patient's Chart DATE OF SERVICE: 10/26/2018 DISCHARGE DIAGNOSES: 1. Acute anterior ST segment elevation myocardial infarction. 2. Coronary artery disease. 3. Cardiomyopathy. 4. Hypertension. 5. Hypothyroidism. 6. Dyslipidemia. CONSULTANTS: None. PROCEDURES: Emergent left heart catheterization with placement of a single drug-eluting stent in the proximal left anterior descending artery via the femoral approach. HISTORY OF PRESENT ILLNESS: The patient is a 68-year-old white female who came to the Emergency Room complaining of chest pain. Recently, the patient noticed intermittent chest tightness. On the day of admission, she woke up at 8 in the morning with chest tightness. Her brought her to the Emergency Room. Initial ECG showed no acute abnormalities. However, during the episode of chest discomfort, ECG showed anterior ST segment elevation myocardial infarction. A code STEMI was activated. I was asked to see her on an emergent basis. Actually when I saw her in the Emergency Room, her pain improved. She denied exertional dyspnea, palpitation, syncope. She had no recent bleeding, fever or cough. PAST MEDICAL HISTORY: Significant for knee surgery, thyroid surgery, hypertension. She had a history of dyslipidemia. MEDICATIONS: On admission included losartan HCT, Synthroid, Prilosec, ranitidine, Zantac. She has not seen a primary care physician at this time. ALLERGIES: She had no known drug allergies. PHYSICAL EXAMINATION: VITAL SIGNS: Blood pressure 140/80, pulse 70. CHEST: Clear to auscultation. CARDIAC: [place] [address] DISCHARGE SUMMARY Name: VEE DIAZ Room: [address]#: [id number] Admission: 10/26/18 Attend Phys: Dilshad Ashley MD, F Discharge: 10/28/18 Date of : 54 Report #: [id number] ABDOMEN: Soft, nontender. EXTREMITIES: Had no edema. DIAGNOSTIC DATA: ECG, sinus rhythm, evidence of anterior ST segment elevation myocardial infarction. Chest x-ray, normal heart size, clear lung wills. LABORATORY DATA: Lab work in the Emergency Room, creatinine 1.2, white blood cell count 5.2, hemoglobin 14.4. HOSPITAL COURSE: The patient was taken urgently to the cardiac catheterization lab. I performed emergent cardiac catheterization for the right femoral artery. Results showed 90% proximal narrowing in the LAD with thrombus. 60% narrowing of the second diagonal branch, 60% narrowing of the third marginal branch. I then placed a single drug-eluting stent in the proximal LAD. She was given heparin and Aggrastat. She was loaded with Plavix. Left ventriculography showed an ejection fraction of 30-35%. Her LVEDP was actually normal at 17. An Angio-Seal was placed at the end of the procedure. She tolerated the procedure well. Fortunately, she had no further chest pain, arrhythmias or heart failure following the procedure. She was monitored following the procedure, remained in sinus rhythm. She developed no significant hematoma in the groin. Followup ECG showed a sinus rhythm, evidence of previous anterior infarction. Lab work during her hospitalization revealed a fasting blood sugar 104, peak troponin was only 0.31. Cholesterol 199, triglycerides 583, HDL 24, LDL could not be calculated. Her TSH 0.445. Followup hemoglobin was 13.4 and there was no drop in platelet count after the Aggrastat. Prior to discharge, the patient was ambulating in the teixeira with no additional complaints. She remained in sinus rhythm. At time of discharge, she had blood pressure of 116/80 with a pulse 70. She was discharged and I recommended she obtain a top primary care physician for management of her thyroid disease and hypertension. I did recommend she enroll in cardiac rehabilitation and maintain low fat diet. If her triglycerides remain elevated, she may require fenofibrate in the future. She was to contact my office if she had recurrent chest pain, shortness of breath, or palpitations. She was discharged on her home medications that consisted of Xanax as needed, Synthroid 125 mcg a day, losartan HCT 100/25 a day, ranitidine as needed, and trazodone. In addition, she was given a prescription for Lipitor 40 mg a day. She was to take aspirin 81 mg a day. She is given a prescription for carvedilol 3.125 mg twice a day, Plavix 75 mg a day and nitroglycerin to take as needed for chest pain. I would consider enrolling her in a study of heart failure patient's following AL after she returns to the office. Hopefully, her ejection fraction will improve and I would recommend a repeat echo in 6-12 months. She is scheduled to see my nurse practitioner in 1 week and I plan on seeing her in cardiology clinic in 8 weeks for followup. <ELECTRONICALLY SIGNED> By: Dilshad Ashley MD, [facility] 10/28/18 3531 1130 [id number] Ashley MD, FACC /nt
== END 2018-10-28 12:45 | disposition home or self-care (01) | DRG 246 ==
LOC: M.ERS 10:11 → M.TBA-CV 12:59 → M.2W 12:59
PROVIDERS: Family Medicine; ADMIT Internal Medicine Cardiovascular Disease
PROC: B2111ZZ Fluoroscopy of Multiple Coronary Arteries using Low Osmolar Contrast (ICD-10-PCS; principal; 2018-10-27)
PROC: 027034Z Dilation of Coronary Artery, One Artery with Drug-eluting Intraluminal Device, Percutaneous Approach (ICD-10-PCS; principal; 2018-10-27)
PROC: B2151ZZ Fluoroscopy of Left Heart using Low Osmolar Contrast (ICD-10-PCS; principal; 2018-10-27)
PROC: 4A023N7 Measurement of Cardiac Sampling and Pressure, Left Heart, Percutaneous Approach (ICD-10-PCS; principal; 2018-10-27)
DX: I21.09 ST elevation (STEMI) myocardial infarction involving other coronary artery of anterior wall (principal); I50.21 Acute systolic (congestive) heart failure; I42.9 Cardiomyopathy, unspecified; E78.5 Hyperlipidemia, unspecified; I25.10 Atherosclerotic heart disease of native coronary artery without angina pectoris; I11.0 Hypertensive heart disease with heart failure; E03.9 Hypothyroidism, unspecified; F41.9 Anxiety disorder, unspecified; K44.9 Diaphragmatic hernia without obstruction or gangrene; Z79.899 Other long term (current) drug therapy; Z90.710 Acquired absence of both cervix and uterus

== ENCOUNTER 2018-10-31 03:48 | Inpatient (IN) | payer MEDICARE, OTHER ==
[~2018-10-31] VITALS: Ht 172.7 cm; Wt 97.5 kg
[~2018-10-31 03:48] MED LIST changes: +COREG3.125 MG PO; +LIPITOR40 MG PO; +LOSARTAN-HCTZ1 EAC1 PO; +PLAVIX 75 MG TA75 M1 PO; +PROTONIX40 M1 PO; +SYNTHROID150 MCG PO; +XANAX1 MG PO
[2018-10-31 03:50] VITALS: BP 166/69
[2018-10-31 04:36] LABS: ABSOLUTE BASOPHILS 0.1 thou/uL (0.0-0.2); ABSOLUTE EOSINOPHILS 0.2 thou/uL (0.0-0.7); ABSOLUTE LYMPHOCYTES 3.1 thou/uL (0.8-5.3); ABSOLUTE MONOCYTES 0.7 thou/uL (0.0-1.2); BASOPHILS 1.2 %; EOSINOPHILS 1.9 %; HEMATOCRIT 43.8 % (37.0-47.0); HEMOGLOBIN 14.8 gm/dL (12.0-15.0); LYMPHOCYTES 34.5 %; MCH 29.3 pg (26.0-34.0); MCHC 33.8 g/dL (28.0-37.0); MCV 86.6 fL (80.0-100.0); MONOCYTES 7.2 %; MPV 8.9 fl. (7.2-11.1); NUCLEATED RBCS 0 /100WBC; POLYS 55.2 %; RBC 5.06 mil/uL (4.20-5.00); RDW-CV 13.5 % (10.5-14.5); WBC 9.1 thou/uL (4.0-11.0)
[2018-10-31 04:41] LABS: PLATELET COUNT* 353 thou/uL (150-400)
[2018-10-31 05:01] LABS: ANION GAP 11 mmol/L (7-16); BUN 19 mg/dL (7-18); CALCIUM 8.9 mg/dL (8.5-10.1); CHLORIDE 104 mmol/L (98-107); CO2 26 mmol/L (21-32); CREATININE 1.4 mg/dL (0.6-1.3); GLUCOSE 119 mg/dL (70-99); POTASSIUM 3.7 mmol/L (3.5-5.1); SODIUM 141 mmol/L (136-145)
[2018-10-31 05:05] LABS: APTT 25.4 Seconds (25.0-31.3); INR 1.1; PROTIME 10.8 Seconds (9.20-11.50)
[2018-10-31 05:12] LABS: ALBUMIN 3.7 g/dL (3.4-5.0); ALKALINE PHOSPHATASE 83 U/L (46-116); LIPASE 109 U/L (73-393); NT-PRO BRAIN NAT PEPTIDE 1659 pg/mL (<300); SGOT 16 U/L (15-37); SGPT 19 U/L (30-65); TOTAL BILIRUBIN 0.4 mg/dL (<0.1-1.0); TOTAL PROTEIN 7.1 g/dL (6.4-8.2); TROPONIN-I LEVEL <0.06 ng/mL (<0.06)
[2018-10-31 08:20] VITALS: BP 96/54
[2018-10-31 09:30] VITALS: BP 98/58
--- NOTE | 2018-10-31 10:38 | EKG ---
[place] [address] ELECTROCARDIOGRAM REPORT Name: VEE DIAZ Room: [address] ADM IN [facility].#: [id number] Admission: 10/31/18 Attend Phys: Vivek Austin MD Discharge: Date of : 54 Report #: [id number] THIS REPORT FOR: //name// [facility] ED Test Date: 2018-10-31 Test Time: 03:53:26 Pat Name: VEE EMILY Department: Room: [facility] Gender: F Director Of Psychology: : 1950 Requested By: Billie Franco Order Number: [id number] MD: Dilshad Ashley Measurements Intervals [place] Rate: 74 P: 17 [place]: 169 QRS: -62 QRSD: 89 T: 207 QT: 520 QTc: 577 Interpretive Statements Sinus rhythm Inferior infarct, age indeterminate Anterolateral infarct, age indeterminate Prolonged QT interval Baseline wander in lead(s) V4 Compared to ECG 10/28/2018 08:26:55 No significant changes Electronically Signed On 10-31-2018 10:38:33 HAND MOLDER MEAT by Dilshad Ashley [email or web address] <ELECTRONICALLY SIGNED> By: Dilshad Ashley MD, FAC 10/31/18 1038 0353 0353 Dilshad Ashley MD, FAC /EPI
[2018-10-31 11:54] VITALS: BP 119/77
[2018-10-31 16:00] VITALS: BP 131/76
[2018-10-31 19:09] LABS: GLYCOHEMOGLOBIN (HGB A1C) 5.4 % (4.8-5.6)
[2018-10-31 20:00] VITALS: BP 147/84
[2018-11-01] VITALS: BP 104/54
[2018-11-01 04:00] VITALS: BP 112/64
[2018-11-01 08:00] VITALS: BP 127/68
[2018-11-01 12:00] VITALS: BP 121/76
[2018-11-01] MEDS ORDERED: PROTONIX40 M1 PO (12:47)
[2018-11-01 14:21] VITALS: BP 121/76
== END 2018-11-01 15:10 | disposition home or self-care (01) | DRG 392 ==
LOC: M.ERS 03:48 → M.TBA-ER 06:19 → M.2W 06:19
PROVIDERS: Family Medicine; Personal Emergency Response Attendant; ADMIT Internal Medicine
DX: K21.9 Gastro-esophageal reflux disease without esophagitis (principal); R07.89 Other chest pain; E89.0 Postprocedural hypothyroidism; N18.3 Chronic kidney disease, stage 3 (moderate); I25.10 Atherosclerotic heart disease of native coronary artery without angina pectoris; K44.9 Diaphragmatic hernia without obstruction or gangrene; F41.9 Anxiety disorder, unspecified; I12.9 Hypertensive chronic kidney disease with stage 1 through stage 4 chronic kidney disease, or unspecified chronic kidney disease; Z79.82 Long term (current) use of aspirin; Z90.710 Acquired absence of both cervix and uterus; Z82.49 Family history of ischemic heart disease and other diseases of the circulatory system; Z80.3 Family history of malignant neoplasm of breast; Z79.899 Other long term (current) drug therapy